=== PATIENT | male | born 1945 | race Caucasian/White ===

== ENCOUNTER 2017-09-08 11:22 | Inpatient (IN) ==
--- NOTE | 2017-09-07 17:29 | Discharge Summary ---
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 Qualifiers: Encounter type: subsequent encounter Qualified Code(s): T84.039D - Mechanical loosening of unspecified internal prosthetic joint, subsequent encounter (3) LEO on CPAP Priority: Secondary Status: Chronic (4) HLD (hyperlipidemia) Priority: Secondary Status: Chronic Qualifiers: Hyperlipidemia type: unspecified Qualified Code(s): E78.5 - Hyperlipidemia , unspecified (5) GERD (gastroesophageal reflux disease) Priority: Secondary Status: Chronic Qualifiers: Esophagitis presence: esophagitis presence not specified Qualified Code(s) : K21.9 - Gastro-esophageal reflux disease without esophagitis (6) Hypertension Priority: Secondary Status: Chronic Qualifiers: Hypertension type: unspecified Qualified Code(s): I10 - Essential (primary ) hypertension (7) Diabetes Priority: Secondary Status: Chronic Qualifiers: Diabetes mellitus type: type 2 Diabetes mellitus complication status: with unspecified complications Diabetes mellitus dementia program director insulin use: with long-term use Qualified Code(s): E11.8 - Type 2 diabetes mellitus with unspecified complications; Z79.4 - group home (current) use of insulin; Z79.4 - group home ( current) use of insulin; Z79.4 - group home (current) use of insulin; Z79.4 - group home (current) use of insulin (8) Coronary artery disease Priority: Secondary Status: Chronic Qualifiers: Coronary Disease-Associated Artery/Lesion type: unspecified vessel or lesion type [place] vs. transplanted heart: unspecified whether [place] or transplanted heart Associated angina: angina presence unspecified Qualified Code(s): I25.10 - Atherosclerotic heart disease of [place] coronary artery without angina pectoris - Discharge Medications Home Medications: Aspirin 81 mg PO DAILY 07/12/16 [History] Atorvastatin Calcium [Lipitor] 40 mg PO HS 07/12/16 [History] Gabapentin [Neurontin] 1,200 mg PO TID 07/12/16 [History] Insulin ASPART [Novolog Flexpen] 36 unit SQ BID 07/12/16 [History] Insulin Glargine,Hum.rec.anlog [Lantus Solostar] 72 unit SQ BID 07/12/16 [ History] Lisinopril [Zestril] 40 mg PO DAILY 07/12/16 [History] Metformin HCl [Glucophage] 1,000 mg PO BID 07/12/16 [History] Omeprazole [PriLOSEC] 20 mg PO DAILY 07/12/16 [History] Ranitidine HCl [Zantac 75] 75 mg PO BID 07/12/16 [History] OxyCODONE Immed Rel [Roxicodone 5 MG] 5 mg PO Q6HR PRN 7 Days #28 tablet [Rx] Albuterol Sulfate [Albuterol Inhaler] 2 puff IH Q4HR PRN 09/08/17 [History] BuPROPion XL (24 HR) [Wellbutrin XL] 150 mg PO DAILY 09/08/17 [History] Docusate [Colace] 300 mg PO HS 09/08/17 [History] Ferrous Sulfate [Iron] 325 mg PO BID 09/08/17 [History] Metoprolol Succinate 100 mg PO DAILY 09/08/17 [History] Naproxen [Naprosyn] 500 mg PO BID 09/08/17 [History] Venlafaxine HCl [Venlafaxine HCl ER] 150 mg PO DAILY 09/08/17 [History] traZODone [TraZODone] 50 mg PO HS 09/08/17 [History] Allergies/Adverse Reactions: 3 Allergy/AdvReac Type Severity Reaction Status Date / Time Zolpidem [From Ambien] AdvReac Unknown See Verified 09/08/17 12:13 Comments [facility] - Patient Status Disposition: Home, Self-Care Condition: Good - Discharge Instructions Follow Up With: [facility] [Primary Care Provider] - - Hospital Course Hospital course: Mr. Issa is a 72 year old male - Time Spent with Patient Total time spent providing and/or coordinating discharge services: <Tim Coulter - Last Filed: 09/09/17 06:16> Date of Encounter: 09/09/17 Time of Encounter: 06:16 - Discharge Diagnosis (1) Morbid obesity with BMI of 40.0-44.9, adult Priority: Secondary Status: Chronic (2) Failed orthopedic implant Priority: Primary Status: Chronic Qualifiers: Encounter type: subsequent encounter Qualified Code(s): T84.498D - Other mechanical complication of other internal orthopedic devices, implants and grafts, subsequent encounter (3) Hypertension Priority: Secondary Status: Chronic Qualifiers: Hypertension type: unspecified Qualified Code(s): I10 - Essential (primary ) hypertension (4) Diabetes Priority: Secondary Status: Chronic Qualifiers: Diabetes mellitus type: type 2 Diabetes mellitus complication status: with unspecified complications Diabetes mellitus dementia program director insulin use: with dementia program director use Qualified Code(s): E11.8 - Type 2 diabetes mellitus with unspecified complications; Z79.4 - business analyst consultant (current) use of insulin; Z79.4 - group home ( current) use of insulin; Z79.4 - business analyst consultant (current) use of insulin; Z79.4 - group home (current) use of insulin (5) Coronary artery disease Priority: Secondary Status: Chronic Qualifiers: Coronary Disease-Associated Artery/Lesion type: unspecified vessel or lesion type [place] vs. 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 Qualifiers: Encounter type: subsequent encounter Qualified Code(s): T84.039D - Mechanical loosening of unspecified internal prosthetic joint, subsequent encounter (9) LEO on CPAP Priority: Secondary Status: Chronic (10) HLD (hyperlipidemia) Priority: Secondary Status: Chronic Qualifiers: Hyperlipidemia type: unspecified Qualified Code(s): E78.5 - Hyperlipidemia , unspecified (11) GERD (gastroesophageal reflux disease) Priority: Secondary Status: Chronic Qualifiers: Esophagitis presence: esophagitis presence not specified Qualified Code(s) : K21.9 - Gastro-esophageal reflux disease without esophagitis Primary care physician: PCP [facility] - Patient Status Functional capacity at discharge: independent ambulation Overall status at discharge: patient is progressing back to baseline - Hospital Course Hospital course: Mr. sIsa is a 72 year old male Status post revision right total shoulder. The patient had an uneventful postoperative course. They received antibiotics and physical therapy and were discharged in stable condition. There will follow -up in the office in 2 weeks. - Time Spent with Patient Total time spent providing and/or coordinating discharge services:
[2017-09-08] MEDS ORDERED: Lidocaine -MPF 1% 2 ML VIAL ID ONE (11:48)
[2017-09-08] MEDS ORDERED: Albuterol 2.5 MG/3 ML NEBULIZER IH ONE (11:48)
[2017-09-08] MEDS ORDERED: CeFAZolin Syr 3,000MG/30 ML 3,000 MG/30 ML SYRINGE IVPB ONE (11:48)
[2017-09-08] MEDS ORDERED: Ringers Solution, Lactated 1,000 ML IVC SCH ×2 (12:00→15:39)
--- NOTE | 2017-09-08 12:00 | History & Physical Report ---
Date of Encounter: 09/08/17 Time of Encounter: 11:59 24 Hour HP Update - Instructions Instructions: If the History and Physical is less than 30 days old and was completed prior to A.M. admission and or procedure and has NOT been updated on calendar day of procedure please complete this update prior to performing procedure. - Update Patient reports changes in Medical Condition: No Changes in examination, assessment, or condition: No Changes in Medication: No Preop tests/diagnostics Reviewed: Yes Surgery Remains Indicated: Yes Consent for Planned Operative Procedure(s) Verified: Yes - Pre-Operative Checklist Preoperative Checklist Indicated: No Prophylactic Antibiotic Ordered: Yes Is VTE Prophylaxis Indicated?: Yes
[2017-09-08] MEDS ORDERED: Gabapentin 300 MG CAPSULE PO ONE (12:09)
[2017-09-08] MEDS ORDERED: Famotidine 20 MG/2 ML VIAL IVP ONE (12:09)
--- NOTE | 2017-09-08 12:30 | Anesthesia Evaluation PreOp ---
Date of Encounter: 09/08/17 Time of Encounter: 12:30 - Past History Planned Operation: Revision Rt Total Shoulder Cardiac History: GA, HTN, Hyperlipidemia Pulmonary History: LEO Dx (CPAP 13) HVAC RESIDENTIAL SERVICE TECHNICIAN History: Denies Any Significant HX Other Medical History: Diabetes Type II, Other ([place]) Anesthesia History: No Prior Anesthetic Complications Alcohol Use: none Drug use: none Medications and Allergies Aspirin 81 mg PO DAILY 07/12/16 [History] Atorvastatin Calcium [Lipitor] 40 mg PO HS 07/12/16 [History] Gabapentin [Neurontin] 1,200 mg PO TID 07/12/16 [History] Insulin ASPART [Novolog Flexpen] 36 unit SQ TIDWM 07/12/16 [History] Insulin Glargine,Hum.rec.anlog [Lantus Solostar] 72 unit SQ BID 07/12/16 [ History] Lisinopril [Zestril] 40 mg PO DAILY 07/12/16 [History] Metformin HCl [Glucophage] 1,000 mg PO BID 07/12/16 [History] Omeprazole [PriLOSEC] 20 mg PO DAILY 07/12/16 [History] Ranitidine HCl [Zantac 75] 75 mg PO BID 07/12/16 [History] Venlafaxine XR (24 HR) [Effexor XR] 75 mg PO DAILY 07/12/16 [History] OxyCODONE Immed Rel [Roxicodone 5 MG] 5 mg PO Q6HR PRN 7 Days #28 tablet [Rx] Metoprolol Succinate 100 mg PO DAILY 09/08/17 [History] 3 Allergy/AdvReac Type Severity Reaction Status Date / Time Zolpidem [From Ambien] AdvReac Unknown See Verified 09/08/17 12:13 Comments - Meds/Allergy Pre-op Review Medications Reviewed: Yes Allergies Reviewed: Yes Beta Blockers on Current Med List: Yes (Took Metoprolol today 0830) Anesthesia Results - Labs Laboratory Tests 09/02/17 09/02/17 16:04 16:04 Hgb 13.4 Hct 42.6 Plt Count 298 Sodium 139 Potassium 5.6 H BUN 22 Creatinine 1.23 - Imaging EKG: report reviewed (SR Left [place] Deviation) Anesthesia Exam O2 Sat Height 1.78 m Height 1.78 m Height 1.78 m Weight 141.067 kg Weight 141.067 kg Weight 141.067 kg O2 Sat by Pulse Oximetry 95 Vital Signs Temp Pulse Resp BP Pulse Ox 98.2 F 76 18 136/80 95 09/08/17 11:48 09/08/17 11:48 09/08/17 11:48 09/08/17 11:48 09/08/17 11:48 Height: 5'10 Weight: 311 lbs NPO (# of Hours): MN Pain Scale: 0 - HEENT Pupil (Motor): Pupils equal, EOMI Mallampati: III Teeth: Normal Oral Opening: Less than or equal to 3 - HVAC RESIDENTIAL SERVICE TECHNICIAN LOC: Oriented HVAC RESIDENTIAL SERVICE TECHNICIAN Motor: Normal RUE, Normal LUE, Normal RLE, Normal LLE, Normal Face HVAC RESIDENTIAL SERVICE TECHNICIAN Sensory: Normal: RUE, LUE, RLE, LLE, Face - Cardiac Rhythm: Regular Murmur: None JVD: No Carotid Bruit: No - Pulmonary Breath Sounds: bilateral Clear Respiratory Effort: Symmetrical Anesthesia Assess/Plan ASA Score: 3 ([place] LEO HTN CAD) Modified [place] Scale for Level of Consciousness: Cooperative, oriented, and tranquil Anesthetic Plan: General, Regional Monitoring Plan: Standard Monitors Recovery Plan: PACU (Discussed GA and RA, agrees to proceed)
[2017-09-08] MEDS ORDERED: ROPIVACAINE HCL/PF 0.5% 30 ML VIAL ONE (12:34)
[2017-09-08] MEDS ORDERED: Bupivacaine/Clonidine Syringe 1 EACH SYRINGE ONE (12:34)
[2017-09-08] MEDS ORDERED: Ethanol\\Acetic Acid\\Na Ace\\Ben 1,000 ML IRRIG.SOLN IR ONE (12:36)
[2017-09-08] MEDS ORDERED: *HR* Meperidine 25 MG/ML SYRINGE IVP PRN (12:47)
[2017-09-08] MEDS ORDERED: *HR* HYDROmorphone (PF) 1 MG/ML SYRINGE IVP PRN ×2 (12:47→15:39)
[2017-09-08] MEDS ORDERED: Naloxone 0.4 MG/ML INJ IVP PRN ×2 (12:47→15:39)
[2017-09-08] MEDS ORDERED: Ondansetron 4 MG/2 ML VIAL IVP PRN ×2 (12:47→15:39)
--- NOTE | 2017-09-08 12:51 | Anesthesia Procedures ---
Date of Encounter: 09/08/17 Time of Encounter: 12:45 Procedures: Anesthesia - Nerve Block Procedure Date: 09/08/17 Time: 12:45 Allergies/Adv Reactions: Allergies Allergy/AdvReac Type Severity Reaction Status Date / Time Zolpidem [From Ambien] AdvReac Unknown See Verified 09/08/17 12:13 Comments Pre-op Diagnosis: Right Shoulder Aseptic Loosening Surgical Procedure: Right Total Shoulder Revision Checklist: Correct Patient Identifier, Correct procedure, History checked Correct side: Right Blood Thinner: No Monitor Applied: EKG, BP, Pulse Oximetry Supplemental Oxygen via Nasal Cannula (L/min): 2 Sedation: Versed (mg): 2 Sedation: Fentanyl (mcg): 100 Indication: Post Op Analgesia Pre-op Neuro Deficits: No Block Type: Supraclavicular, Other (SCP, ICB) Sterile Technique: Yes Ultrasound used: Yes Anatomy identified: Yes Visual spread of Local: Yes Blood on Needle Aspiration: No Smooth Injection of Local: Yes Pain with Injection of Local: No Prep: Chlorhexadine Needle: 22 x 50 mm Stimuplex Local: 0.25% Bupivicaine w/Clonidine 20 mcg/cc (5mL each SCP, ICB), Ropivacaine (0.5% 30mL Supra) Volume (cc): 40 Number of Attempts: 1 Complications: None/effective block Vitals: VSS throughout. See nursing documentation. Comments: Verbal order Dr Coulter for postop pain management. Patient tolerated well.
[2017-09-08] MEDS ORDERED: *HR* Propofol 200 MG/20 ML VIAL IVP ONE (13:46)
[2017-09-08] MEDS ORDERED: Lidocaine -MPF 2% 2 ML VIAL ONE (13:46)
[2017-09-08] MEDS ORDERED: Lidocaine -MPF 4% 5 ML AMPUL ONE (13:46)
[2017-09-08] MEDS ORDERED: *HR* Succinylcholine 200 MG/10 ML VIAL IVP ONE (13:46)
[2017-09-08] MEDS ORDERED: *HR* FentaNYL (PF) 100 MCG/2 ML VIAL ONE (13:46)
[2017-09-08] MEDS ORDERED: *HR* Rocuronium Bromide 50 MG/5 ML VIAL ONE (13:46)
[2017-09-08] MEDS ORDERED: *HR* Midazolam HCl 2 MG/2 ML VIAL ONE (13:46)
--- NOTE | 2017-09-08 14:14 | Orthopedic Operative Note ---
Date of procedure: 09/08/17 Pre-op diagnosis: Aseptic loosening right reverse total shoulder replacement Post-op diagnosis: same Procedure: Procedure: Right Revision Total Shoulder replacement reverse Estimated blood loss: 200 cc Hardware: Arthrex metal and plastic replacement: Glenoid component: Large, 2 4.5 screws, one 6.5 screw, 42+4 sphere, 12 stem, 12 spacer, 3 constrained [place]netta Procedural Notes: Loose glenoid with fractured screws 2, loose humeral component Operative procedure: The patient was brought to the operating room and placed on the operating room table. The patient was placed in the modified beachchair position. All pressure points were padded appropriately. And the head was stabilized in the neutral position. The operative extremity was prepped and draped in the sterile surgical fashion. The patient received IV antibiotics prior to skin incision. A standard deltopectoral approach was made to the operative shoulder. Incision was made through the old incision, through the skin and subcutaneous tissue, hemo stasis was obtained with Bovie cautery. Using careful blunt dissection the deltopectoral interval was developed and the clavipectoral fascia was incised. An extensive debridement was performed, and the shoulder was dislocated. Using an osteotome to clear out the soft tissue, the humeral component was disassembled leaving the diaphyseal component. Anterior and posterior Bankart retractors were used to expose the glenoid, the glenoid component was removed without incident. First the glenosphere was disengaged, and the screws removed from the baseplate, and finally the baseplate was removed without significant bone loss. Patient had had a previous poly-glenoid from his original total shoulder replacement. Patient still had good glenoid bone stock. No attempt was made to remove the broken screws for fear of losing more bone. The glenoid guide was seated the centering hole was made the glenoid was reamed with the appropriate large reamer. The glenoid baseplate was seated and secured and locked in place with the locking screws. This was placed over 2 mL of DBX bone stimulating protein placed in the central holes. 2 4.5 compression screws 1 30 millimeter 6.5 central screw The baseplate was irrigated and dried the 42+4 glenosphere was seated and secured. Attention was then turned to the humeral side. The diaphyseal component was removed from the humerus without incident. The humerus was reamed and broached up to a 12 size in 20 degrees of retroversion. Trial reduction found the shoulder to be relocatable. Trial components were removed, real implants were seated. Trial reduction found the shoulder to be stable with the 12 spacer and 3 poly-constrained. The trial implants were removed the real implants were seated and secured in the shoulder was reduced. The patient had excellent motion and excellent stability no shuck. The deep tissue was irrigated with pulse irrigation deltopectoral interval was closed by the PA, with #2 PDS suture over Gelfoam soaked in vancomycin. Superficially the subcutaneous tissue was closed with 0 PDS suture, the skin was closed with Dermabond. The patient placed sterile dressing, postoperative brace extubated and transferred to the recovery room in stable condition. Anesthesia: GETA Surgeon: Tim Coulter Condition: stable Disposition: PACU
[2017-09-08] MEDS ORDERED: Ondansetron 4 MG/2 ML VIAL ONE (14:21)
[2017-09-08] MEDS ORDERED: Dexamethasone 4 MG/ML VIAL ONE (14:21)
[2017-09-08 15:22] LABS: Hematocrit 35.8 % (37.5-50.1); Hemoglobin 12.1 g/dL (12.9-16.9)
[2017-09-08] MEDS ORDERED: *HR* Dextrose 50 % in Water (Syg) 50 ML SYRINGE IVP PRN (15:39)
[2017-09-08] MEDS ORDERED: MOM Conc 10 ML UD.LIQ PO PRN (15:39)
[2017-09-08] MEDS ORDERED: Dextrose Gel 15 GM PO PRN ×2 (15:39)
[2017-09-08] MEDS ORDERED: D5% in Water 1,000 ML IVC PRN (15:39)
[2017-09-08] MEDS ORDERED: Sennosides 8.6 MG TABLET PO PRN (15:39)
[2017-09-08] MEDS ORDERED: *HR* OxyCODONE Immed Rel 5 MG TABLET PO PRN (15:39)
[2017-09-08] MEDS ORDERED: Temazepam 15 MG CAPSULE PO PRN (15:39)
[2017-09-08] MEDS: Gabapentin 400 MG CAPSULE PO SCH ×2 (16:38→21:10)
[2017-09-08] MEDS: Insulin LISPRO 300 UNITS/3 ML VIAL SQ SCH (16:38)
[2017-09-08] MEDS: *HR* OxyCODONE Immed Rel 5 MG TABLET PO PRN (16:38)
[2017-09-08] MEDS: *HR* Enoxaparin 30 MG/0.3 ML SYRINGE SQ SCH (16:39)
[2017-09-08] MEDS: CeFAZolin Syr 3,000MG/30 ML 3,000 MG/30 ML SYRINGE IVPB SCH ×2 (17:09→23:26)
[2017-09-08] MEDS ORDERED: *HR* Enoxaparin 30 MG/0.3 ML SYRINGE SQ SCH (18:00)
[2017-09-08] MEDS ORDERED: Insulin LISPRO 300 UNITS/3 ML VIAL SQ SCH (21:00)
[2017-09-08] MEDS ORDERED: traZODone 50 MG TABLET PO SCH (21:00)
[2017-09-08] MEDS: Famotidine 20 MG TABLET PO SCH (21:11)
[2017-09-08] MEDS: *HR* Metformin 500 MG TABLET PO SCH (21:11)
[2017-09-08] MEDS: Insulin DETEMIR 100 UNIT/ML X5UNITS SQ SCH (21:13)
[2017-09-09] MEDS: *HR* OxyCODONE Immed Rel 5 MG TABLET PO PRN (02:37)
[2017-09-09 04:15] LABS: Hematocrit 31.7 % (37.5-50.1); Hemoglobin 10.7 g/dL (12.9-16.9)
[2017-09-09] MEDS: *HR* Enoxaparin 30 MG/0.3 ML SYRINGE SQ SCH (05:14)
--- NOTE | 2017-09-09 06:17 | Orthopedics Progress Note ---
Date of Encounter: 09/09/17 Time of Encounter: 06:17 - Assessment and Plan (1) Morbid obesity with BMI of 40.0-44.9, adult Current Visit: Yes Status: Chronic (2) Failed orthopedic implant Current Visit: No Status: Chronic Qualifiers: Encounter type: subsequent encounter Qualified Code(s): T84.498D - Other mechanical complication of other internal orthopedic devices, implants and grafts, subsequent encounter (3) Hypertension Current Visit: No Status: Chronic Qualifiers: Hypertension type: unspecified Qualified Code(s): I10 - Essential (primary ) hypertension (4) Diabetes Current Visit: No Status: Chronic Qualifiers: Diabetes mellitus type: type 2 Diabetes mellitus complication status: with unspecified complications Diabetes mellitus hotel reservationist insulin use: with group home use Qualified Code(s): E11.8 - Type 2 diabetes mellitus with unspecified complications; Z79.4 - group home (current) use of insulin; Z79.4 - group home ( current) use of insulin; Z79.4 - group home (current) use of insulin; Z79.4 - group home (current) use of insulin (5) Coronary artery disease Current Visit: No Status: Chronic Qualifiers: Coronary Disease-Associated Artery/Lesion type: unspecified vessel or lesion type [place] vs. transplanted heart: unspecified whether [place] or transplanted heart Associated angina: angina presence unspecified Qualified Code(s): I25.10 - Atherosclerotic heart disease of [place] coronary artery without angina pectoris (6) Sleep apnea Current Visit: No Status: Chronic Qualifiers: Sleep apnea type: unspecified type Qualified Code(s): G47.30 - Sleep apnea , unspecified (7) Traumatic arthropathy Current Visit: No Status: Chronic (8) Prosthetic joint loosening Current Visit: No Status: Chronic Qualifiers: Encounter type: subsequent encounter Qualified Code(s): T84.039D - Mechanical loosening of unspecified internal prosthetic joint, subsequent encounter (9) LEO on CPAP Current Visit: No Status: Chronic (10) HLD (hyperlipidemia) Current Visit: No Status: Chronic Qualifiers: Hyperlipidemia type: unspecified Qualified Code(s): E78.5 - Hyperlipidemia , unspecified (11) GERD (gastroesophageal reflux disease) Current Visit: No Status: Chronic Qualifiers: Esophagitis presence: esophagitis presence not specified Qualified Code(s) : K21.9 - Gastro-esophageal reflux disease without esophagitis Subjective Interval history: Patient was seen this morning doing well without complaints. Afebrile vital signs stable. Operative extremity: Neurovascularly intact Dressing clean dry and intact Calves nontender Assessment and plan: Continue with postoperative care Hematocrit 32 discharged today Objective Vital signs: Vital Signs Temp Pulse Resp BP Pulse Ox 09/09/17 03:19 98.2 F 69 18 112/61 93 09/08/17 22:43 98.0 F 74 18 119/67 93 09/08/17 18:33 98.3 F 54 18 142/81 94 09/08/17 18:11 97.9 F 52 16 122/56 97 09/08/17 17:27 97.6 F 61 16 143/76 97 09/08/17 17:15 93 09/08/17 16:30 97.6 F 71 16 129/69 93 09/08/17 16:17 97.8 F 83 16 113/62 96 09/08/17 15:30 98.6 F 73 16 140/82 95 09/08/17 15:15 97.1 F L 62 12 118/58 98 09/08/17 15:05 97.1 F L 74 12 121/78 98 09/08/17 14:55 74 17 129/81 99 09/08/17 14:45 75 16 128/74 97 09/08/17 14:35 97.6 F 75 16 130/79 93 09/08/17 12:37 63 117/90 96 09/08/17 11:48 98.2 F 76 18 136/80 95 Intake and Output 09/08/17 09/08/17 09/09/17 15:59 23:59 07:59 Intake Total 60 / 60 100 / 100 Output Total 200 / 200 0 / 0 0 / 0 Balance -200 / -200 60 / 60 100 / 100 Intake: IV Fluids 60 / 60 Ancef Syringe 3,000 MG/30 ML 3, 60 / 60 000 mg In 30 ml @ 200 mls/hr IVPB Q8HR JAIME Rx#:[id number] Oral 100 / 100 Output: Urine 0 / 0 0 / 0 0 / 0 Estimated Blood Loss 200 / 200 Other: # Voids 1 1 Weight 141.067 kg Blood Glucose* 216 376 - Labs CBC & BMP: 09/09/17 04:02 Labs: Abnormal lab results Hgb 10.7 g/dL (12.9-16.9) L 09/09/17 04:02 Hct 31.7 % (37.5-50.1) L 09/09/17 04:02 POC Glucose 216 (58-89) H 09/08/17 16:21 - VTE Documentation of Mechanical Device: Venous foot pump, device Consult Discharge Plan - Plan [facility]errals: [facility] [Primary Care Provider] -
[2017-09-09] MEDS: Insulin LISPRO 300 UNITS/3 ML VIAL SQ SCH ×2 (07:30→12:35)
[2017-09-09] MEDS ORDERED: ROPIVACAINE HCL/PF 0.5% 30 ML VIAL ONE (08:24)
[2017-09-09] MEDS ORDERED: Dexamethasone 4 MG/ML VIAL ONE (08:25)
[2017-09-09] MEDS ORDERED: Lidocaine -MPF 2% 2 ML VIAL ONE (08:25)
[2017-09-09] MEDS ORDERED: Aspirin 81 MG TAB.CHEW PO SCH (09:00)
[2017-09-09] MEDS ORDERED: Lisinopril 20 MG TABLET PO SCH (09:00)
[2017-09-09] MEDS ORDERED: BuPROPion XL (24 HR) 150 MG TABLET PO SCH (09:00)
[2017-09-09] MEDS ORDERED: Venlafaxine XR (24 HR) 150 MG CAP.ER.24H PO SCH (09:00)
[2017-09-09] MEDS ORDERED: Metoprolol XL (24 HR) Succ 50 MG TAB.ER.24H PO SCH (09:00)
--- NOTE | 2017-09-09 09:29 | Anesthesia Procedures ---
Date of Encounter: 09/09/17 Time of Encounter: 09:15 Procedures: Anesthesia - Nerve Block Procedure Date: 09/09/17 Time: 09:15 Pre-op Diagnosis: S/P Shoulder Revision Surgical Procedure: Rt Shoulder Revision Rescue Supraclavicular Block Checklist: Correct Patient Identifier Correct side: Right Blood Thinner: No Monitor Applied: EKG, BP, Pulse Oximetry Indication: Post Op Analgesia (Rescue Block) Block Type: Supraclavicular Catheter placed: No Depth at skin (cm): 3 Sterile Technique: Yes Ultrasound used: Yes Anatomy identified: Yes Visual spread of Local: Yes Neuro Stimulation: No Blood on Needle Aspiration: No Smooth Injection of Local: Yes Pain with Injection of Local: No Prep: Chlorhexadine Needle: 21 x 100 mm Stimuplex Local: Ropivacaine (0.5%) Volume (cc): 30 Number of Attempts: 1 Complications: None/effective block Vitals: Vital Signs/O2 Sat/Glucose, Most Current Temp Pulse Resp BP Pulse Ox 09/09/17 07:22 98.6 F 78 16 117/68 92
[2017-09-09] MEDS: Insulin DETEMIR 100 UNIT/ML X5UNITS SQ SCH (11:20)
[2017-09-09] MEDS: Famotidine 20 MG TABLET PO SCH (11:22)
[2017-09-09] MEDS: *HR* Metformin 500 MG TABLET PO SCH (11:25)
[2017-09-09] MEDS: Gabapentin 400 MG CAPSULE PO SCH (11:26)
[2017-09-09 12:21] VITALS: BP 107/55
[2017-09-10] MEDS ORDERED: Famotidine 20 MG TABLET PO SCH (07:30)
== END 2017-09-09 14:50 | disposition home or self-care (01) | DRG 483 ==
LOC: SAMDAY 11:22 → 3NENU 15:29
PROVIDERS: ADMIT Orthopaedic Surgery; ATTEND Orthopaedic Surgery